=== PATIENT | male | born 1995 | race Caucasian/White ===

== ENCOUNTER 2017-02-14 20:47 | Emergency (ER) | payer MEDICAID ==
[~2017-02-14] VITALS: Ht 185.4 cm; Wt 104.3 kg
[~2017-02-14 20:47] MED LIST: SULF1TAB24 PO
[2017-02-14] MEDS ORDERED: NAPROXEN 500 MG TABLET PO STA (21:43)
[2017-02-14] MEDS ORDERED: DOXYCYCLINE HYCLATE 100 MG TABLET PO ONE (21:45)
--- NOTE | 2017-02-14 21:49 | PHYS DOC ---
Past Medical History Past Medical History: No Pertinent History Past Surgical History: Other Additional Past Surgical Histo: RIGHT SHOULDER Alcohol Use: None Drug Use: None Adult General Chief Complaint Chief Complaint: TOE PROBLEM HPI HPI Patient is a 21 year old male who presents with complaint of right toe swelling and pain. Patient states symptoms have been worsening over the past 5 days. The patient states that he had an infection in his toe back in November of this year and was seen in the emergency department. Patient was diagnosed with paronychia and had his toe drained at that time. The patient states that it improved after treatment, however he started getting worsening symptoms during this week. The patient states that he is having redness and pain to his right great toe. Patient denies any other symptoms currently. 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 The patient has not taken any medications to help with the symptoms at this time. Review of Systems Review of Systems Constitutional: Denies fever or chills [] Eyes: Denies change in visual acuity, redness, or eye pain [] HENT: Denies nasal congestion or sore throat [] Respiratory: Denies cough or shortness of breath [] Cardiovascular: Denies chest pain or edema [] Musculoskeletal: Right great toe swelling and pain [] Integument: Denies rash or skin lesions [] Neurologic: Denies headache, focal weakness or sensory changes [] Current Medications Current Medications Current Medications Medications (Trade) Dose Ordered Sig/Ruthie Start Time Stop Time Status Last Admin Dose Admin Doxycycline Hyclate (Vibra-Tab) 100 mg 1X ONCE 02/14/17 21:45 02/14/17 21:46 DC Naproxen (Naprosyn) 500 mg 1X STAT 02/14/17 21:43 02/14/17 21:45 DC Allergies Allergies Allergies Coded Allergies Type Severity Reaction Last Updated Verified No Known Drug Allergies 12/08/16 No Physical Exam Physical Exam Constitutional: Well developed, well nourished, no acute distress, non-toxic appearance. [] HENT: Normocephalic, atraumatic, bilateral external ears normal, oropharynx moist, no oral exudates, nose normal. [] Eyes: PERRLA, EOMI, conjunctiva normal, no discharge. [] Neck: Normal range of motion, no tenderness, supple, no stridor. [] Cardiovascular:Heart rate regular rhythm, no murmur [] Lungs & Thorax: Bilateral breath sounds clear to auscultation [] Abdomen: Bowel sounds normal, soft, no tenderness, no masses, no pulsatile masses. [] Extremities: Right great toenail status post partial lateral ungualectomy, surrounding erythema and induration, tender to palpation, no fluctuance, no lymphangitic streaking. [] Neurologic: Alert and oriented X 3, normal motor function, normal sensory function, no focal deficits noted. [] EKG EKG Not performed [] Radiology/Procedures Radiology/Procedures Not performed [] Course & Med Decision Making Course & Med Decision Making Pertinent Labs and Imaging studies reviewed. (See chart for details) Patient was given doxycycline and Naprosyn in the emergency department. Recommended referral to Dr. Roberts of podiatry for reevaluation after treatment of infection as patient may need to have a toenail revision done at that time. Advised return emergency department for any worsening symptoms. Patient voiced understanding and in agreement with treatment plan. Dragon Disclaimer Dragon Disclaimer This electronic medical record was generated, in whole or in part, using a voice recognition dictation system. Departure Departure Impression: Primary Impression: Cellulitis Disposition: HOME, SELF-CARE Condition: IMPROVED Referrals: NO PCP (PCP) SHRUTHI ROBERTS DPM Patient Instructions: Infected Ingrown Toenail Additional Instructions: Follow-up with Dr. Roberts in 5-7 days. Return to the emergency department for any worsening symptoms. Scripts Doxycycline Hyclate 100 Mg Capsule1 Cap PO BID #20 CAP Prov:SORAYA ARMSTRONG MD 02/14/17 Naproxen (Naprosyn)500 Mg [id number] Mg PO BID #20 TAB Prov:SORAYA ARMSTRONG MD 02/14/17 Problem Qualifiers Primary Impression: Cellulitis Site of cellulitis: extremity Site of cellulitis of extremity: toe Laterality: right Qualified Code: L03.031 - Cellulitis of right toe SORAYA ARMSTRONG MD Feb 14, 2017 21:49
[2017-02-14 21:50] VITALS: BP 126/77
[2017-02-14] MEDS ORDERED: NAPR500T PO (21:57)
[2017-02-14] MEDS ORDERED: DOXY100C2 PO (21:57)
== END 2017-02-14 22:10 | disposition home or self-care (01) ==
LOC: ER 20:47
DX: L03.031 Cellulitis of right toe (principal)
CPT/HCPCS: 99283

== ENCOUNTER 2017-02-21 19:05 | Emergency (ER) | payer OTHER, MEDICAID ==
[~2017-02-21 19:05] MED LIST changes: +DOXY100C2 PO; +NAPR500T PO
[2017-02-21] MEDS ORDERED: CYCL10TA2 PO (20:06)
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
[2017-02-21 20:22] VITALS: BP 142/79
== END 2017-02-21 20:23 | disposition home or self-care (01) ==
LOC: ER 19:05
DX: S46.811A Strain of other muscles, fascia and tendons at shoulder and upper arm level, right arm, initial encounter (principal); S09.90XA Unspecified injury of head, initial encounter; V89.2XXA Person injured in unspecified motor-vehicle accident, traffic, initial encounter; Y92.413 State road as the place of occurrence of the external cause; Y93.89 Activity, other specified; Y99.8 Other external cause status
CPT/HCPCS: 99283